=== PATIENT | female | born 1960 | race Caucasian/White ===

== ENCOUNTER 2023-06-19 16:52 | Emergency (ER) | payer OTHER, SELFPAY ==
[2023-06-19 16:59] VITALS: BP 143/79
--- NOTE | 2023-06-19 21:37 | ED.GENMED ---
History of Present Illness
General
Chief Complaint: Foreign Body Ingestion
Source: patient
Exam Limitations: none
Time Seen by Provider: 06/19/23 18:00
Travel History
Have you had any contact with someone who has COVID-19?: No
Do you have any symptoms of coronavirus? Fever > 100 degrees, chills, cough, shortness of breath, sore throat, loss of taste or smell, muscle aches, or headache?: No
History of Present Illness
History of Present Illness:
Patient states she was attempting to hide drugs that were brought into long term. She states she place wrapped drugs that were in a bag into her rectum. She reports removing drugs at long term. [facility]irement sent her here to make sure all drugs were removed
from rectum. Pateint has no complaints.
Past History
Past History
ED Past Medical History: Other, Other and Other
ED Past Surgical History: Gynecological and Other
Social History
Tobacco: Smoker
Alcohol: None
Drug: IVDA
Living: with family
Employment: Not employed
Family History
Family History: Cancer
Review of Systems
Review of Systems
Allergies reviewed?: Yes
All Other Systems: ROS reviewed and negative except as documented in HPI and ROS
Constitutional: Reports no symptoms
EENT: Reports no symptoms
Respiratory: Reports no symptoms
Cardiac: Reports no symptoms
ABD/GI: Reports other (Rectal FB ( drugs ) [employer])
: Reports no symptoms
Musculoskeletal: Reports no symptoms
Skin: Reports no symptoms
Neurological: Reports no symptoms
Psychiatric: Reports no symptoms
Phy Exam
General Physical Exam
General Presentation: well appearing and no apparent distress
General age: appears stated age
General Skin: warm and dry
General Habitus: normal
General Mental: alert
Gastrointestinal Exam
Gastrointestinal Exam: non tender and soft
Musculoskeletal Exam
Musculoskeletal Exam: full ROM
Skin Exam
Skin Exam: normal color and warm/dry
Psychiatric Exam
Psychiatric Exam: normal mood/affect
Course
Orders/Labs/Results
Orders:
Orders
06/19/23 17:[address] [CT Pelvis W/o Iv Contrast] Urgent
Comment:
Reason For Exam: possible fb
Vital Signs
Initial and Last Documented VS:
Initial Vital Signs
Temp Pulse Resp BP Pulse Ox
98.4 F 79 18 143/79 95
06/19/23 16:59 06/19/23 16:59 06/19/23 16:59 06/19/23 16:59 06/19/23 16:59
Last Documented Vital Signs
Temp Pulse Resp BP Pulse Ox
98.4 F 79 18 143/79 95
06/19/23 16:59 06/19/23 16:59 06/19/23 16:59 06/19/23 16:59 06/19/23 16:59
*Radiology
Radiology exam reviewed: radiology read reviewed
*Pulse Oximetry
Patient hypoxic: no
*Critical Care Note
Total Time (30-74mins, 75-104mins- exclusive of procedures): Not Applicable
ED Attending Note
-
Portions of this chart may have been created with voice recognition software.� Occasional wrong word or��sound alike� substitutions may have occurred due to the inherent limitations of voice recognition software.
Discharge Plan
Departure
Patient Disposition: Retirement
Date of Disposition: 06/19/23
Time of Disposition: 21:36
Patient with high blood pressure during this ER visit?: No
Condition: Good
Covid-19: Not Applicable
Discharge Problem:
rectal foreign body by history
Instructions: Rectal Foreign Body
Prescriptions:
No Action
Multivitamin With Minerals [Hair, Skin And Nails] 1 EACH Tablet
3 ea PO DAILY
multivitamin 1 EACH tablet
1 tab PO DAILY
mirabegron [Myrbetriq] 50 MG tablet extended release 24 hr
50 mg PO DAILY
cranberry sstw-X-trwgvwek coag [Azo Cranberry Plus Probiotic] 1 EACH tablet
2 tab PO DAILY
ibuprofen 200 MG capsule
600 mg PO PRN PRN (Reason: pain)
naproxen sodium 220 MG capsule
220 - 440 mg PO PRN PRN (Reason: migraines)
cannabidiol [Epidiolex] 1 UNIT solution
2 - 3 inh inhalation [id number] PRN (Reason: anxiety)
Patient Comments:
'oil cartridges,' takes EOD or 4-5x/week
Referrals:
[facility] [Family Provider] -
Activity Restrictions/Additional Instructions:
As we discussed, no foreign body was detected on CT scan. Follow up with your health center in the AM
Interventions
Interventions:
*Risk Screen - Suicide Last Done: 06/19/23 16:59
*General Assessment Last Done: 06/19/23 16:59
*Neglect/Abuse Screening Last Done: 06/19/23 16:59
*ED COVID-19 Vaccine History Last Done: 06/19/23 16:59
*Nursing Disposition Last Done: 06/19/23 21:50
PY-Hvoeho-Caympfnfor Assessment Last Done: 06/19/23 19:00
ED-EENT Assessment Last Done: 06/19/23 19:00
ED- Pulmonary Assessment Last Done: 06/19/23 17:10
Discharge Date and Time
Discharge Date/Time: 06/19/23 22:50
== END 2023-06-19 22:50 ==
LOC: EMR 16:52
PROVIDERS: EMERGENCY PHYSICIAN Emergency Medicine
DX: T18.5XXA Foreign body in anus and rectum, initial encounter (principal); W44.9XXA Unspecified foreign body entering into or through a natural orifice, initial encounter; F17.200 Nicotine dependence, unspecified, uncomplicated
CPT/HCPCS: 99284; 72192